=== PATIENT | female | born 1965 | race Hispanic/Latino ===

== ENCOUNTER 2019-10-15 08:33 | Emergency (ER) | payer OTHER, SELFPAY ==
--- OUTSIDE RECORDS SUMMARY | 2019-10-15 08:36 | XMS REPORT ---
:1965 [facility] Address [address] [place] [address] Dr. Harris [address] [place] [id number] Care Team Providers Name Role Phone Unavailable Unavailable Unavailable Problems This patient has no known problems. Allergies, Adverse Reactions, Alerts This patient has no known allergies or adverse reactions. Medications This patient has no known medications.
--- NOTE | 2019-10-15 09:21 | EKG ---
Test Date: 2019-10-15 Test Time: 08:37:37 Production Control Clerk: SARAH MEASUREMENT RESULTS: Intervals: Rate: 61 AL: 190 QRSD: 82 QT: 430 QTc: 432 [place]: P: 54 AL: 190 QRS: 66 T: 45 INTERPRETIVE STATEMENTS: Normal sinus rhythm Normal ECG Compared to ECG 09/17/2017 23:50:20 No significant changes Electronically Signed On 10-15-19 09:20:49 [employer] RECOVERY WORKER by Farhan Sandhu
[2019-10-15 09:27] LABS: Absolute Lymphocytes (CBC) 1.4 K/uL (0.7-4.9); Basophils % 0.8 % (0-1.3); Hematocrit 40.6 % (36.0-45.0); MPV 8.8 fL (7.6-11.3); RBC Red Blood Cell Count 4.46 M/uL (3.86-4.86)
[2019-10-15 09:28] LABS: Protime INR 1.04
[2019-10-15 09:46] LABS: ALT/SGPT 24 U/L (12-78); AST/SGOT 13 U/L (15-37); Albumin 3.9 g/dL (3.4-5.0); Alkaline Phosphatase 70 U/L (45-117); BUN Blood Urea Nitrogen 13 mg/dL (7-18); Bicarbonate 28 mmol/L (21-32); Bilirubin Direct 0.1 mg/dL (0-0.2); Bilirubin Total 0.5 mg/dL (0.2-1.0); Glucose Level 98 mg/dL (74-106); Magnesium 2.3 mg/dL (1.8-2.4); NT PRO-BNP 32 pg/mL (<125); Potassium 4.1 mmol/L (3.5-5.1); Protein, Total 7.8 g/dL (6.4-8.2); Sodium Level 142 mmol/L (136-145); Troponin (Emerg Dept Use Only) < 0.02 ng/mL (0.0-0.045)
--- NOTE | 2019-10-15 10:19 | RAD REPORT ---
EXAM DESCRIPTION: CT - Chest Angio - 10/15/2019 10:10 am CLINICAL HISTORY: CP radiateas from back to front;Chest pain COMPARISON: Chest Single View dated 10/15/2019 TECHNIQUE: Dynamically enhanced 3 mm thick images of the chest were obtained during administration o f approximately 150mL Isovue 370 IV contrast. Coronal and oblique MIP reconstruction images were gene rated and reviewed. Exam utilizes a protocol to evaluate the pulmonary arterial tree. All CT scans are performed using dose optimization technique as appropriate and may include automated exposure control or mA/KV adjustment according to patient size. FINDINGS: No pulmonary emboli are identified. The right and left main pulmonary arteries are enlarge d. Main pulmonary artery exiting the heart is normal size. The aorta as imaged shows no acute or suspicious finding. No pericardial thickening or effusion. No infiltrate or mass in the lung parenchyma. No pleural effusion or pleural thickening. No bronchial wall thickening or endobronchial lesion. No mediastinal or hilar suspicious masses. No chest wall masses or abnormal axillary lymphadenopathy. IMPRESSION: No pulmonary emboli identified. Pulmonary arteries are relatively large and correlation can be made with any pulmonary artery hyperte nsion clinical presentation. Lung pabon are clear. No significant or suspicious findings otherwise noted.
[2019-10-15] MEDS ORDERED: KETOROLAC 30 MG/ML INJ ONE (10:29)
--- NOTE | 2019-10-15 10:32 | RAD REPORT ---
EXAM DESCRIPTION: RAD - Chest Single View - 10/15/2019 9:52 am CLINICAL HISTORY: CHEST PAIN Chest pain. COMPARISON: Chest Single View dated 09/17/2017; CHEST SINGLE VIEW dated 10/15/2010; CHEST PA AND LAT 2 VIEW dated 12/13/2009; CHEST SINGLE VIEW dated 09/12/2008; Chest Angio dated 10/15/2019 FINDINGS: Portable technique limits examination quality. The lungs are grossly clear. The heart is normal in size. No displaced fractures. IMPRESSION: No acute intrathoracic process suspected.
--- NOTE | 2019-10-15 12:20 | ER ---
Nurse's Notes [facility] Name: Ellie Fajardo Age: 54 yrs Sex: Female : 1965 Arrival Date: 10/15/2019 Time: 08:36 Bed 19 Private MD: Diagnosis: Chest pain, unspecified;Upper back pain Presentation: 10/15 08:47 Presenting complaint: Patient states: upper back pain started yesterday, then started iw having midsternal chest pain this morning while at work, pain described as "needle pain" intermittent. Transition of care: patient was not received from another setting of care. Onset of symptoms was October 14, 2001. Risk Assessment: Do you want to hurt yourself or someone else? Patient reports no desire to harm self or others. Initial Sepsis Screen: Does the patient meet any 2 criteria? No. Patient's initial sepsis screen is negative. Does the patient have a suspected source of infection? No. Patient's initial sepsis screen is negative. Care prior to arrival: None. 08:47 Method Of Arrival: Ambulatory iw 08:47 Acuity: ARELI 3 iw Triage Assessment: 08:50 General: Appears in no apparent distress. comfortable, Behavior is calm, cooperative, bp appropriate for age. Pain: Complains of pain in back and abdomen. EENT: No deficits noted. Neuro: No deficits noted. Cardiovascular: Rhythm is sinus rhythm. Respiratory: No deficits noted. GI: No signs and/or symptoms were reported involving the gastrointestinal system. : No signs and/or symptoms were reported regarding the genitourinary system. Derm: No deficits noted. Musculoskeletal: No deficits noted. 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 - Coronavirus screen:: The patient has NOT traveled to [place] in the past 14 days. Proceed with normal triage process as indicated. - Social history:: Smoking status: Patient denies any tobacco usage or history of. - Ebola Screening: : Patient negative for fever greater than or equal to 101.5 degrees Fahrenheit, and additional compatible Ebola Virus Disease symptoms Patient denies exposure to infectious person Patient denies travel to an Ebola-affected area in the 21 days before illness onset No symptoms or risks identified at this time. Screenin:52 Abuse screen: Denies threats or abuse. Denies injuries from another. Nutritional hb screening: No deficits noted. Tuberculosis screening: No symptoms or risk factors identified. Fall Risk None identified. Assessment: 09:00 General: SEE TRIAGE NOTE. bp 09:52 Reassessment: ALL ORDERS COMPLETED, INITIAL RESULTS UNREMARKABLE. PT STILL C/O bp EPIGASTRIC PAIN. 10:40 Reassessment: REPEAT TROP DRAWN AND SENT. VS STABLE ON MONITOR. bp 11:47 Reassessment: ALL CURRENT VITALS STABLE, NO ACUTE S/S AT THIS TIME. bp 12:56 Reassessment: PT D/C HOME AMBULATORY, DX WITH NONSPECIFIC CHEST PAIN. bp Vital Signs: 08:50 BP 148 / 56; Pulse 57; Resp 16; Temp 97.7; Pulse Ox 99% on R/A; Weight 77.11 kg; Height iw 5 ft. 5 in. (165.10 cm); Pain 5/10; 09:51 BP 139 / 66; Pulse 57; Resp 27; Pulse Ox 100% ; bp 10:40 BP 117 / 64; Pulse 67; Resp 19; Pulse Ox 96% ; bp 11:46 BP 127 / 64; Pulse 61; Resp 13; Pulse Ox 98% ; bp 12:55 BP 117 / 61; Pulse 57; Resp 16; Temp 98; Pulse Ox 100% ; bp 08:50 Body Mass Index 28.29 (77.11 kg, 165.10 cm) iw ED Course: 08:36 Patient arrived in ED. as 08:46 Nuno Plata MD is Attending Physician. kdr 08:47 Frankie Michele, ANNA is Primary Nurse. bp 08:50 Triage completed. iw 08:50 Arm band placed on. iw 08:52 Patient has correct armband on for positive identification. Placed in gown. Bed in low hb position. Call light in reach. Side rails up X 1. secured entrance monitor on. Pulse ox on. NIBP on. 08:52 Patient maintains SpO2 saturation greater than 95% on room air. hb 09:03 Initial lab(s) drawn, by me, sent to lab. Inserted saline lock: 22 gauge in left kj1 antecubital area, using aseptic technique. Blood collected. 12:56 No provider procedures requiring assistance completed. IV discontinued, intact, bp bleeding controlled, No redness/swelling at site. Pressure dressing applied. Administered Medications: 10:30 Drug: TORadol - Ketorolac 15 mg Route: IVP; Site: left antecubital; bp Outcome: 12:18 Discharge ordered by . kdr 12:56 Discharged to home ambulatory. bp 12:56 Condition: stable 12:56 Discharge instructions given to patient, Instructed on discharge instructions, follow up and referral plans. Demonstrated understanding of instructions, follow-up care. 12:58 Patient left the ED. bp Signatures: Nuno Plata MD MD kdr Martinez, Amelia as Williams, Irene, ANNA RN iw Norma Simon RN RN Frankie Vazquez RN RN Caroline Calix [email or web address] Corrections: (The following items were deleted from the chart) 09:55 09:51 Pulse 57bpm; Resp 27bpm; Pulse Ox 100%; bp bp
--- NOTE | 2019-10-15 12:21 | EDPHYS ---
Physician Documentation [facility] Name: Ellie Fajardo Age: 54 yrs Sex: Female : 1965 Arrival Date: 10/15/2019 Time: 08:36 Bed 19 Private MD: ED Physician Nuno Plata HPI: 10/15 11:03 This 54 yrs old Female presents to ER via Ambulatory with complaints of Chest kdr Pain, Back Pain. 11:03 The patient or guardian reports chest pain that is located primarily in the substernal kdr area, The patient stated having pain yesterday in her upper mid back that now radiates into her lower substernal area.. Onset: suddenly, yesterday. The pain radiates to From mid back to lower sternum. Associated signs and symptoms: The patient has no apparent associated signs or symptoms. The chest pain is described as aching, sharp, stabbing. Duration: The patient or guardian reports multiple episodes, that are intermittent, that wax and wane, with no pattern. Severity of pain: At its worst the pain was mild in the emergency department the pain is unchanged. The patient has not experienced similar symptoms in the past. The patient has not recently seen a physician. 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 She does not have any prior history of the same and no other apparent precipitating issues or events. 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 - Coronavirus screen:: The patient has NOT traveled to [place] in the past 14 days. Proceed with normal triage process as indicated. - Social history:: Smoking status: Patient denies any tobacco usage or history of. - Ebola Screening: : Patient negative for fever greater than or equal to 101.5 degrees Fahrenheit, and additional compatible Ebola Virus Disease symptoms Patient denies exposure to infectious person Patient denies travel to an Ebola-affected area in the 21 days before illness onset No symptoms or risks identified at this time. ROS: 11:03 Constitutional: Negative for fever, chills, and weight loss, Eyes: Negative for injury, kdr pain, redness, and discharge, ENT: Negative for injury, pain, and discharge, Neck: Negative for injury, pain, and swelling, Respiratory: Negative for shortness of breath, cough, wheezing, and pleuritic chest pain, Abdomen/GI: Negative for abdominal pain, nausea, vomiting, diarrhea, and constipation, : Negative for injury, bleeding, discharge, and swelling, MS/Extremity: Negative for injury and deformity, Skin: Negative for injury, rash, and discoloration, Neuro: Negative for headache, weakness, numbness, tingling, and seizure activity. Psych: Negative for depression, anxiety, suicide ideation, homicidal ideation, and hallucinations, Allergy/Immunology: Negative for hives, rash, and allergies, Endocrine: Negative for neck swelling, polydipsia, polyuria, polyphagia, and marked weight changes, Hematologic/Lymphatic: Negative for swollen nodes, abnormal bleeding, and unusual bruising. 11:03 Cardiovascular: Positive for chest pain, of the xyphoid area, Negative for edema, orthopnea, palpitations, paroxysmal nocturnal dyspnea, acute changes. Exam: 11:03 Constitutional: This is a well developed, well nourished patient who is awake, alert, kdr and in no acute distress. Head/Face: Normocephalic, atraumatic. Eyes: Pupils equal round and reactive to light, extra-ocular motions intact. Lids and lashes normal. Conjunctiva and sclera are non-icteric and not injected. Cornea within normal limits. Periorbital areas with no swelling, redness, or edema. Neck: Trachea midline, no thyromegaly or masses palpated, and no cervical lymphadenopathy. Supple, full range of motion without nuchal rigidity, or vertebral point tenderness. No Meningismus. Chest/axilla: Normal chest wall appearance and motion. Nontender with no deformity. No lesions are appreciated. Cardiovascular: Regular rate and rhythm with a normal S1 and S2. No gallops, murmurs, or rubs. Normal PMI, no JVD. No pulse deficits. Respiratory: Lungs have equal breath sounds bilaterally, clear to auscultation and percussion. No rales, rhonchi or wheezes noted. No increased work of breathing, no retractions or nasal flaring. Abdomen/GI: Soft, non-tender, with normal bowel sounds. No distension or tympany. No guarding or rebound. No evidence of tenderness throughout. Back: No spinal tenderness. No costovertebral tenderness. Full range of motion. Skin: Warm, dry with normal turgor. Normal color with no rashes, no lesions, and no evidence of cellulitis. MS/ Extremity: Pulses equal, no cyanosis. Neurovascular intact. Full, normal range of motion. Neuro: Awake and alert, GCS 15, oriented to person, place, time, and situation. Cranial nerves II-XII grossly intact. Motor strength 5/5 in all extremities. Sensory grossly intact. Cerebellar exam normal. Normal gait. Psych: Awake, alert, with orientation to person, place and time. Behavior, mood, and affect are within normal limits. Vital Signs: 08:50 BP 148 / 56; Pulse 57; Resp 16; Temp 97.7; Pulse Ox 99% on R/A; Weight 77.11 kg; Height iw 5 ft. 5 in. (165.10 cm); Pain 5/10; 09:51 BP 139 / 66; Pulse 57; Resp 27; Pulse Ox 100% ; bp 10:40 BP 117 / 64; Pulse 67; Resp 19; Pulse Ox 96% ; bp 11:46 BP 127 / 64; Pulse 61; Resp 13; Pulse Ox 98% ; bp 12:55 BP 117 / 61; Pulse 57; Resp 16; Temp 98; Pulse Ox 100% ; bp 08:50 Body Mass Index 28.29 (77.11 kg, 165.10 cm) iw MDM: 11:03 HEART Score: History: Slightly Suspicious (0), ECG: Normal (0), Age: > 45 and < 65 kdr years (1), Risk Factors: 1 or 2 risk factors (1), Troponin: < or = 1 x Normal Limit (0), Total Score = 2. The patient's pulmonary embolism risk score was calculated as follows: No Risks (0 Pts) Total Score: 0-2 points. This patient was found to be at low risk for a pulmonary embolism by using the Well's assessment criteria. CHARLIE Risk Score: TOTAL SCORE = 0. Data reviewed: vital signs, nurses notes. 11:48 ED course: No change in Trop values and no significant changes between two EKG. Will kdr discharge for follow-up.. 12:18 Patient medically screened. kdr 10/15 09:06 Order name: Basic Metabolic Panel hb 10/15 09:06 Order name: CBC with Diff hb 10/15 09:06 Order name: LFT's hb 10/15 09:06 Order name: Magnesium hb 10/15 09:06 Order name: NT PRO-BNP hb 10/15 09:06 Order name: PT-INR hb 10/15 09:06 Order name: Troponin (emerg Dept Use Only) hb 10/15 09:34 Order name: CBC with Automated Diff; Complete Time: 10:22 EDMS 10/15 09:34 Order name: Protime (+INR); Complete Time: 10:22 EDMS 10/15 09:47 Order name: Basic Metabolic Panel; Complete Time: 10:22 EDMS 10/15 09:47 Order name: Liver (Hepatic) Function; Complete Time: 10:22 EDMS 10/15 09:47 Order name: Troponin (Emerg Dept Use Only); Complete Time: 10:22 EDMS 10/15 09:47 Order name: NT PRO-BNP; Complete Time: 10:22 EDMS 10/15 09:47 Order name: Magnesium; Complete Time: 10:22 EDMS 10/15 09:06 Order name: XRAY Chest (1 view) hb 10/15 09:06 Order name: EKG; Complete Time: 09:09 hb 10/15 09:06 Order name: Cardiac monitoring; Complete Time: 09:13 hb 10/15 09:06 Order name: EKG - Nurse/Tech; Complete Time: 09:13 hb 10/15 09:06 Order name: IV Saline Lock; Complete Time: 09:13 hb 10/15 09:06 Order name: Labs collected and sent; Complete Time: 09:13 hb 10/15 09:06 Order name: O2 Per Protocol; Complete Time: 09:13 hb 10/15 09:06 Order name: O2 Sat Monitoring; Complete Time: 09:13 hb 10/15 09:26 Order name: CT Chest Angio kdr 10/15 10:34 Order name: Troponin (emerg Dept Use Only) kdr 10/15 10:40 Order name: CT; Complete Time: 11:02 EDMS 10/15 11:08 Order name: RAD; Complete Time: 11:44 EDMS 10/15 11:12 Order name: Troponin (Emerg Dept Use Only); Complete Time: 11:44 EDMS Administered Medications: 10:30 Drug: TORadol - Ketorolac 15 mg Route: IVP; Site: left antecubital; bp Disposition: 10/15/19 12:18 Discharged to Home. Impression: Chest pain, unspecified, Upper back pain. - Condition is Stable. - Discharge Instructions: Nonspecific Chest Pain, [id number], Back Pain, Adult, [id number]. - Medication Reconciliation Form, Thank You Letter form. - Follow up: Private Physician; When: 2 - 3 days; Reason: If symptoms return, Further diagnostic work-up, Recheck today's complaints, Continuance of care, Re-evaluation by your physician. - Problem is new. - Symptoms have improved. Signatures: Dispatcher [employer] EDMS Nuno Plata MD MD kdr Naomi Fang RN RN iw Norma Simon RN RN Frankie Michele RN RN bp Corrections: (The following items were deleted from the chart) 12:58 12:18 10/15/2019 12:18 Discharged to Home. Impression: Chest pain, unspecified; Upper bp back pain. Condition is Stable. Forms are Medication Reconciliation Form, Thank You Letter, Antibiotic Education, Prescription Opioid Use. Follow up: Private Physician; When: 2 - 3 days; Reason: If symptoms return, Further diagnostic work-up, Recheck today's complaints, Continuance of care, Re-evaluation by your physician. Problem is new. Symptoms have improved. kdr
--- NOTE | 2019-10-15 17:49 | EKG ---
Test Date: 2019-10-15 Test Time: 10:24:32 Tire Recapper: SARAH MEASUREMENT RESULTS: Intervals: Rate: 53 PA: 204 QRSD: 72 QT: 442 QTc: 414 [place]: P: 39 PA: 204 QRS: 130 T: 39 INTERPRETIVE STATEMENTS: Sinus bradycardia Right axis deviation Low voltage QRS cannot rule out Septal infarct, age undetermined Abnormal ECG Compared to ECG 10/15/2019 08:37:37 Right-axis deviation now present Low QRS voltage now present possible Myocardial infarct finding now present Sinus rhythm no longer present Electronically Signed On 10-15-19 17:48:33 PARAPLANNER by Farhan Sandhu
[2019-10-16 08:53] VITALS: BP 117/61; TEMP 98; O2SAT 100
== END 2019-10-15 12:58 | disposition home or self-care (01) ==
LOC: ER 08:33
DX: M54.9 Dorsalgia, unspecified (principal); I10 Essential (primary) hypertension
CPT/HCPCS: 93005 ×2; 85025; 80048; 36415; 83735; 85610; 80076; 84484 ×2; 83880; 71275; 71045; 96374; 99285; Q9967

== ENCOUNTER 2020-03-16 19:39 | Observation (INO) | payer OTHER ==
[2020-03-16 20:07] LABS: Urine Blood NEGATIVE (NEG); Urine Glucose NEGATIVE (NEG); Urine Protein NEGATIVE (NEG); Urine pH 5.5 (5.0-7.0)
[2020-03-16] MEDS ORDERED: PIPER/TAZO/NS 3.375gm 3.375 GM/100 ML BAG ONE ×3 (20:20→23:38)
[2020-03-16] MEDS ORDERED: ONDANSETRON 4 MG/2 ML VIAL ONE (20:20)
[2020-03-16] MEDS ORDERED: MORPHINE 4 MG/ML SYR ONE (20:20)
[2020-03-16] MEDS ORDERED: NA CHLORIDE 0.9% 1,000 ML ONE (20:20)
[2020-03-16 20:32] LABS: Bilirubin Direct 0.1 mg/dL (0-0.2); Bilirubin Total 0.7 mg/dL (0.2-1.0); Potassium 3.6 mmol/L (3.5-5.1); Protein, Total 8.8 g/dL (6.4-8.2)
[2020-03-16 20:35] LABS: Absolute Lymphocytes (CBC) 1.9 K/uL (0.7-4.9); Basophils % 0.5 % (0-1.3); Hematocrit 43.2 % (36.0-45.0); Lymphocytes % 16.9 % (15.3-44.8); MPV 8.6 fL (7.6-11.3); RBC Red Blood Cell Count 4.74 M/uL (3.86-4.86)
--- NOTE | 2020-03-16 20:39 | RAD REPORT ---
EXAM DESCRIPTION: CT - Abdomen Pelvis W Contrast - 03/16/2020 8:21 pm CLINICAL HISTORY: ABD PAIN COMPARISON: CT ABD PELVIS W CONTRAST dated 12/01/2014 TECHNIQUE: Biphasic, helical CT imaging of the abdomen and pelvis was performed following 100 ml non -ionic IV contrast. No oral contrast. All CT scans are performed using dose optimization technique as appropriate and may include automated exposure control or mA/KV adjustment according to patient size. FINDINGS: No suspicious lung base findings. A 5 mm pulmonary nodule lateral left base has not change d since 2015. The liver, spleen, and pancreas show no suspicious findings. Gallbladder is absent. Dilatation of the biliary tree matches the prior study. Symmetric renal function is seen with no hydronephrosis or suspicious renal mass. No pyelonephritis o r acute parenchymal process. No bladder abnormalities. No adrenal abnormalities. Uterus and ovaries s how no suspicious findings. No gastric dilatation or gastric wall thickening. No small bowel abnormality. Terminal ileum is hiral l in appearance. No acute colon finding identified. Patient has diverticulosis without diverticulitis . The appendix is abnormal. Proximal appendix is up to 11 mm in diameter much larger than seen previous ly. There is a trace amount of stranding in the adjacent fat. No appendicolith. No free air or pneumatosis. No other area of inflammatory stranding. No hernia, mass or bulky lymp hadenopathy. No suspicious bony findings. IMPRESSION: Appendix is abnormal in appearance compared to the 2015 study. Early acute appendicitis is the most likely etiology. No free air, abscess or other complicating factor. Appendix is in classic right lower quadrant locati on.
--- NOTE | 2020-03-16 20:40 | RAD REPORT ---
EXAM DESCRIPTION: RAD - Chest Single View - 03/16/2020 8:31 pm CLINICAL HISTORY: ABDOMINAL DISTENTION, abdominal pain COMPARISON: October 2019 TECHNIQUE: AP portable chest image was obtained 03/16/2020 8:31 pm . FINDINGS: Lung volumes are low. No focal mass or consolidation. Low lung volumes, portable technique and body habitus accentuate left base markings. Heart and vasculature are normal. No measurable pleu ral effusion and no pneumothorax. No acute bony abnormality seen. No acute aortic findings suspected. IMPRESSION: No acute cardiopulmonary process.
--- NOTE | 2020-03-16 20:55 | ER ---
Nurse's Notes [facility] Name: Ellie Fajardo Age: 55 yrs Sex: Female : 1965 Arrival Date: 03/16/2020 Time: 19:44 Bed 6 Private MD: Frankie Dunn Diagnosis: Abdominal tenderness;Acute appendicitis Presentation: 03/16 19:54 Chief complaint: Patient states: RLQ pain started early today. Reports Nausea and ca1 dizziness. Denies urinary symptoms. Coronavirus screen: Proceed with normal triage. Patient denies a cough. Patient denies shortness of breath or difficulty breathing. Patient denies measured and/or subjective temperature greater than 100.4F prior to today's visit. Patient denies travel on a cruise ship or to a country the [facility] currently lists as an affected area. Patient denies contact with known and/or suspected case of COVID-19. Ebola Screen: Patient negative for fever greater than or equal to 101.5 degrees Fahrenheit, and additional compatible Ebola Virus Disease symptoms Patient denies exposure to infectious person. Patient denies travel to an Ebola-affected area in the 21 days before illness onset. No symptoms or risks identified at this time. Initial Sepsis Screen: Does the patient meet any 2 criteria? No. Patient's initial sepsis screen is negative. Does the patient have a suspected source of infection? No. Patient's initial sepsis screen is negative. Risk Assessment: Do you want to hurt yourself or someone else? Patient reports no desire to harm self or others. Onset of symptoms was March 16, 2020. 19:54 Method Of Arrival: Ambulatory ca1 19:54 Acuity: ARELI 3 ca1 Historical: - Allergies: 19:56 No Known Allergies; ca1 - Home Meds: 19:56 amlodipine 5 mg tab once daily for Hypertension [Active]; ca1 - PMHx: 19:56 Hypertension; ca1 - PSHx: 19:56 Cholecystectomy; ca1 - Immunization history:: Adult Immunizations up to date. - Social history:: Smoking status: Patient denies any tobacco usage or history of. - Family history:: not pertinent. Screenin:56 Abuse screen: Denies threats or abuse. Denies injuries from another. Nutritional rv screening: No deficits noted. Tuberculosis screening: No symptoms or risk factors identified. Fall Risk None identified. Assessment: 19:55 General: Appears comfortable, Behavior is calm, cooperative. Pain: Complains of pain in rv right lower quadrant Pain currently is 7 out of 10 on a pain scale. Quality of pain is described as dull. Neuro: Level of Consciousness is awake, alert, obeys commands, Oriented to person, place, time, situation. Cardiovascular: Patient's skin is warm and dry. Respiratory: Airway is patent. GI: Bowel sounds present X 4 quads. Abd is soft Abdomen is tender to palpation in right lower quadrant Reports nausea. 21:57 Reassessment: nurse will call back to receive the report. mg2 Vital Signs: 19:54 BP 135 / 71; Pulse 96; Resp 15 S; Pulse Ox 99% on R/A; Weight 77.11 kg (R); Height 5 ca1 ft. 5 in. (165.10 cm) (R); 19:59 Temp 99.6(A); mg2 21:00 BP 135 / 67; Pulse 81; Resp 17; Pulse Ox 99% on R/A; rv 22:00 BP 127 / 58; Pulse 79; Resp 17; Temp 99; Pulse Ox 98% on R/A; rv 19:54 Body Mass Index 28.29 (77.11 kg, 165.10 cm) ca1 ED Course: 19:44 Patient arrived in ED. es 19:44 Frankie Dunn MD is Private Physician. es 19:48 Ivan Bennett, WARREN is Primary Nurse. rv 19:54 Kali Crocker MD is Attending Physician. mitch 19:55 Triage completed. ca1 19:56 Arm band placed on right wrist. ca1 19:57 Patient has correct armband on for positive identification. Placed in gown. Bed in low rv position. Call light in reach. Side rails up X 1. Pulse ox on. NIBP on. 19:59 Initial lab(s) drawn, by ED staff, sent to lab. Inserted saline lock: 20 gauge in right rv antecubital area, using aseptic technique. Blood collected. 20:06 Lipase Sent. ds4 20:06 Hepatic Function Sent. ds4 20:07 CBC with Diff Sent. ds4 20:07 Basic Metabolic Panel Sent. ds4 20:21 CT Abd/Pelvis - IV Contrast Only In Process Unspecified. EDMS 20:30 Chest Single View XRAY In Process Unspecified. EDMS 20:51 Antonio Camp MD is Hospitalizing Provider. [facility] 22:04 No provider procedures requiring assistance completed. Patient admitted, IV remains in mg2 place. Administered Medications: 20:14 Drug: morphine 4 mg {Note: RASS 0.} Route: IVP; Site: right antecubital; rv 21:55 Follow up: Response: No adverse reaction; Marked relief of symptoms mg2 20:14 Drug: Zofran (Ondansetron) 4 mg Route: IVP; Site: right antecubital; rv 21:55 Follow up: Response: No adverse reaction mg2 20:15 Drug: NS 0.9% 1000 ml Route: IV; Rate: 1 bolus; Site: right antecubital; rv 21:55 Follow up: Response: No adverse reaction; IV Status: Completed infusion; IV Intake: mg2 1000ml 21:15 Drug: Zosyn 3.375 grams Route: IVPB; Infused Over: 60 mins; Site: right forearm; mg2 21:55 Follow up: Response: No adverse reaction; IV Status: Completed infusion mg2 22:12 Not Given (NPO): Tylenol 650 mg PO once rv Intake: 21:55 IV: 1000ml; Total: 1000ml. mg2 Outcome: 20:55 Decision to Hospitalize by Provider. [facility] 22:04 Admitted to Med/surg accompanied by tech, via wheelchair, room 212, with chart, Report mg2 called to warren wilder 22:04 Condition: stable 22:04 Instructed on the need for admit, Demonstrated understanding of instructions. 22:16 Patient left the ED. ar5 Signatures: Dispatcher [employer] [facility] Kali Crocker MD MD cha Salyer, Edna es Swanson, Donovan ds4 Kenyon Vance RN RN mg2 Ivan Bennett RN RN rv Robles, Autumn ar5 Brittany Chris RN RN ca1 Corrections: (The following items were deleted from the chart) 19:56 19:54 77.11 kg Reported; Height 5 ft. 5 in. Reported; BMI: 28.2; ca1 ca1
--- NOTE | 2020-03-16 20:55 | EDPHYS ---
Physician Documentation [facility] Name: Ellie Fajardo Age: 55 yrs Sex: Female : 1965 Arrival Date: 03/16/2020 Time: 19:44 Bed 6 Private MD: Frankie Dunn ED Physician Kali Crocker HPI: 03/16 20:13 This 55 yrs old Female presents to ER via Ambulatory with complaints of mitch Abdominal Pain, Flank Pain, Dizziness. 20:13 This 55 yrs old Female presents to ER via Ambulatory with complaints of mitch Abdominal Pain, Flank Pain, Dizziness. 20:13 The patient presents with abdominal pain in the lower abdomen, right lower quadrant. mitch Onset: The symptoms/episode began/occurred just prior to arrival. The symptoms do not radiate. Associated signs and symptoms: none. The symptoms are described as crampy. Modifying factors: The symptoms are alleviated by nothing, the symptoms are aggravated by. Severity of pain: At its worst the pain was moderate in the emergency department the pain is unchanged. The patient has not experienced similar symptoms in the past. Historical: - Allergies: 19:56 No Known Allergies; ca1 - Home Meds: 19:56 amlodipine 5 mg tab once daily for Hypertension [Active]; ca1 - PMHx: 19:56 Hypertension; ca1 - PSHx: 19:56 Cholecystectomy; ca1 - Immunization history:: Adult Immunizations up to date. - Social history:: Smoking status: Patient denies any tobacco usage or history of. - Family history:: not pertinent. ROS: 20:13 Constitutional: Negative for fever, chills, and weight loss, Eyes: Negative for injury, mitch pain, redness, and discharge, ENT: Negative for injury, pain, and discharge, Neck: Negative for injury, pain, and swelling, Cardiovascular: Negative for chest pain, palpitations, and edema, Respiratory: Negative for shortness of breath, cough, wheezing, and pleuritic chest pain, Back: Negative for injury and pain, : Negative for injury, bleeding, discharge, and swelling, MS/Extremity: Negative for injury and deformity, Skin: Negative for injury, rash, and discoloration, Neuro: Negative for headache, weakness, numbness, tingling, and seizure, Psych: Negative for depression, anxiety, suicide ideation, homicidal ideation, and hallucinations, Allergy/Immunology: Negative for hives, rash, and allergies, Endocrine: Negative for neck swelling, polydipsia, polyuria, polyphagia, and marked weight changes, Hematologic/Lymphatic: Negative for swollen nodes, abnormal bleeding, and unusual bruising. 20:13 Abdomen/GI: Positive for abdominal pain, of the right lower quadrant. Exam: 20:13 Constitutional: This is a well developed, well nourished patient who is awake, alert, mitch and in no acute distress. Head/Face: Normocephalic, atraumatic. Eyes: Pupils equal round and reactive to light, extra-ocular motions intact. Lids and lashes normal. Conjunctiva and sclera are non-icteric and not injected. Cornea within normal limits. Periorbital areas with no swelling, redness, or edema. ENT: Nares patent. No nasal discharge, no septal abnormalities noted. Tympanic membranes are normal and external auditory canals are clear. Oropharynx with no redness, swelling, or masses, exudates, or evidence of obstruction, uvula midline. Mucous membranes moist. Neck: Trachea midline, no thyromegaly or masses palpated, and no cervical lymphadenopathy. Supple, full range of motion without nuchal rigidity, or vertebral point tenderness. No Meningismus. Chest/axilla: Normal chest wall appearance and motion. Nontender with no deformity. No lesions are appreciated. Cardiovascular: Regular rate and rhythm with a normal S1 and S2. No gallops, murmurs, or rubs. Normal PMI, no JVD. No pulse deficits. Respiratory: Lungs have equal breath sounds bilaterally, clear to auscultation and percussion. No rales, rhonchi or wheezes noted. No increased work of breathing, no retractions or nasal flaring. Back: No spinal tenderness. No costovertebral tenderness. Full range of motion. Female : Normal external genitalia. Skin: Warm, dry with normal turgor. Normal color with no rashes, no lesions, and no evidence of cellulitis. MS/ Extremity: Pulses equal, no cyanosis. Neurovascular intact. Full, normal range of motion. Neuro: Awake and alert, GCS 15, oriented to person, place, time, and situation. Cranial nerves II-XII grossly intact. Motor strength 5/5 in all extremities. Sensory grossly intact. Cerebellar exam normal. Normal gait. Psych: Awake, alert, with orientation to person, place and time. Behavior, mood, and affect are within normal limits. 20:13 Abdomen/GI: Inspection: abdomen appears normal, Bowel sounds: normal, Palpation: abdomen is soft and non-tender, in the right lower quadrant, Liver: no appreciated palpable abnormalities, Hernia: not appreciated. 20:20 ECG was reviewed by the Attending Physician. [facility] Vital Signs: 19:54 BP 135 / 71; Pulse 96; Resp 15 S; Pulse Ox 99% on R/A; Weight 77.11 kg (R); Height 5 ca1 ft. 5 in. (165.10 cm) (R); 19:59 Temp 99.6(A); mg2 21:00 BP 135 / 67; Pulse 81; Resp 17; Pulse Ox 99% on R/A; rv 22:00 BP 127 / 58; Pulse 79; Resp 17; Temp 99; Pulse Ox 98% on R/A; rv 19:54 Body Mass Index 28.29 (77.11 kg, 165.10 cm) ca1 MDM: 19:54 Patient medically screened. [facility] 20:15 Data reviewed: vital signs, nurses notes, lab test result(s), radiologic studies, CT mitch scan. 20:16 Differential diagnosis: cholecystitis, Cholelithiasis, gastritis, gastroesophageal mitch reflux disease, non-specific abd pain, pancreatitis. Data interpreted: supervisor last model department: rate is 96 beats/min, rhythm is regular, Pulse oximetry:. Test interpretation: by ED physician or midlevel provider: ECG, plain radiologic studies. Counseling: I had a detailed discussion with the patient and/or guardian regarding: the historical points, exam findings, and any diagnostic results supporting the discharge/admit diagnosis, lab results, radiology results, the need for further work-up and treatment in the hospital. Medical screen evaluation completed. EMTALA emergency medical condition absent. Medication response: Zofran markedly relieved the patient's nausea. 03/16 19:57 Order name: Basic Metabolic Panel; Complete Time: 20:45 ca1 03/16 19:57 Order name: CBC with Diff; Complete Time: 20:45 ca1 03/16 19:57 Order name: Hepatic Function; Complete Time: 20:45 ca1 03/16 19:57 Order name: Lipase; Complete Time: 20:45 ca1 03/16 19:59 Order name: Urine Dipstick--Ancillary (enter results); Complete Time: 20:08 ar5 03/16 20:10 Order name: Urine Culture [facility] 03/16 20:08 Order name: CT Abd/Pelvis - IV Contrast Only; Complete Time: 20:45 mitch 03/16 20:08 Order name: Chest Single View XRAY; Complete Time: 20:45 mitch 03/16 20:11 Order name: Glucose, Ancillary Testing; Complete Time: 20:45 EDMS 03/16 19:57 Order name: Urine Dipstick-Ancillary (obtain specimen); Complete Time: 19:57 ca1 03/16 19:57 Order name: IV Saline Lock; Complete Time: 19:58 ca1 03/16 19:57 Order name: Labs collected and sent; Complete Time: 19:58 ca1 03/16 20:08 Order name: EKG; Complete Time: 20:09 mitch 03/16 20:08 Order name: EKG - Nurse/Tech; Complete Time: 20:14 mitch EC:20 Rate is 96 beats/min. Rhythm is regular. QRS [place] is Normal. [place] interval is normal. QRS mitch interval is normal. QT interval is normal. No Q waves. T waves are Normal. No ST changes noted. Clinical impression: NSR w/ Non-specific ST/T Changes and No evidence of ischemia. Interpreted by me. Reviewed by me. Administered Medications: 20:14 Drug: morphine 4 mg {Note: RASS 0.} Route: IVP; Site: right antecubital; rv 21:55 Follow up: Response: No adverse reaction; Marked relief of symptoms mg2 20:14 Drug: Zofran (Ondansetron) 4 mg Route: IVP; Site: right antecubital; rv 21:55 Follow up: Response: No adverse reaction mg2 20:15 Drug: NS 0.9% 1000 ml Route: IV; Rate: 1 bolus; Site: right antecubital; rv 21:55 Follow up: Response: No adverse reaction; IV Status: Completed infusion; IV Intake: mg2 1000ml 21:15 Drug: Zosyn 3.375 grams Route: IVPB; Infused Over: 60 mins; Site: right forearm; mg2 21:55 Follow up: Response: No adverse reaction; IV Status: Completed infusion mg2 22:12 Not Given (NPO): Tylenol 650 mg PO once rv Disposition: 03/16/20 20:55 Hospitalization ordered by Antonio Camp for Observation. Preliminary diagnosis are Abdominal tenderness, Acute appendicitis. - Bed requested for Telemetry/MedSurg (observation). - Status is Observation. ar5 - Condition is Stable. - Problem is new. - Symptoms have improved. Signatures: Dispatcher [employer] EDMS Kali Crocker MD MD cha Garcia, Cindy, ANNA RN cg Kenyon Vance RN RN [facility] Ivan Bennett RN RN [place] ar5 Brittany Chris RN RN ca1 Corrections: (The following items were deleted from the chart) 21:52 20:55 Hospitalization Ordered by Antonio Camp MD for Observation. Preliminary cg diagnosis is Abdominal tenderness; Acute appendicitis. Bed requested for Telemetry/MedSurg (observation). Status is Observation. Condition is Stable. Problem is new. Symptoms have improved. [facility] 22:16 21:52 03/16/2020 20:55 Hospitalization Ordered by Antonio Camp MD for Observation. ar5 Preliminary diagnosis is Abdominal tenderness; Acute appendicitis. Bed requested for Telemetry/MedSurg (observation). Status is Observation. Condition is Stable. Problem is new. Symptoms have improved. cg
--- OUTSIDE RECORDS SUMMARY | 2020-03-16 21:08 | XMS REPORT | Continuity of Care Document ---
:1965 Author Organization [facility] t Address [address] [place] [address] Dr. Harris [address] [place] [id number] Care Team Providers Name Role Phone Unavailable Unavailable Unavailable Problems This patient has no known problems. Allergies, Adverse Reactions, Alerts This patient has no known allergies or adverse reactions. Medications This patient has no known medications. Procedures This patient has no known procedures. Results This patient has no known results.
[2020-03-16] MEDS ORDERED: ONDANSETRON 4 MG/2 ML VIAL IV PRN (22:12)
[2020-03-16] MEDS ORDERED: MORPHINE 4 MG/ML SYR IV PRN (22:12)
[2020-03-16] MEDS ORDERED: ACETAMINOPHEN 325 MG TABLET PO PRN (22:24)
[2020-03-16] MEDS: D5 0.45 NS 1,000 ML IV SCH (22:43)
[2020-03-16] MEDS: FAMOTIDINE 20 MG/2 ML VIAL IV SCH (22:53)
[2020-03-17 00:04] VITALS: BMI 29.0
[2020-03-17] MEDS: PIPER/TAZO/NS 3.375gm 3.375 GM/100 ML BAG IVPB SCH ×4 (00:29→18:00)
[2020-03-17] MEDS: D5 0.45 NS 1,000 ML IV SCH ×3 (06:12→21:26)
[2020-03-17 06:47] LABS: Absolute Lymphocytes (CBC) 1.4 K/uL (0.7-4.9); Basophils % 0.6 % (0-1.3); Hematocrit 35.8 % (36.0-45.0); Lymphocytes % 22.3 % (15.3-44.8); MPV 8.3 fL (7.6-11.3); RBC Red Blood Cell Count 3.92 M/uL (3.86-4.86)
[2020-03-17 06:56] LABS: ALT/SGPT 19 U/L (12-78); AST/SGOT 12 U/L (15-37); Albumin 3.3 g/dL (3.4-5.0); Alkaline Phosphatase 62 U/L (45-117); BUN Blood Urea Nitrogen 11 mg/dL (7-18); Bicarbonate 26 mmol/L (21-32); Bilirubin Direct 0.2 mg/dL (0-0.2); Bilirubin Total 0.8 mg/dL (0.2-1.0); Glucose Level 106 mg/dL (74-106); Lipase 50 U/L (73-393); Potassium 3.8 mmol/L (3.5-5.1); Protein, Total 7.1 g/dL (6.4-8.2); Sodium Level 141 mmol/L (136-145)
--- NOTE | 2020-03-17 07:24 | EKG ---
Test Date: 2020-03-16 Test Time: 20:17:30 Certified Lactation Educator: MEASUREMENT RESULTS: Intervals: Rate: 88 NM: 188 QRSD: 68 QT: 350 QTc: 423 [place]: P: 50 NM: 188 QRS: 112 T: 61 INTERPRETIVE STATEMENTS: Normal sinus rhythm Right axis deviation Low voltage QRS Septal infarct, age undetermined Abnormal ECG Compared to ECG 10/15/2019 10:24:32 Sinus bradycardia no longer present Myocardial infarct finding still present Electronically Signed On 03-17-20 07:22:55 CDT by Aristides Hendrix
[2020-03-17] MEDS: FAMOTIDINE 20 MG/2 ML VIAL IV SCH ×2 (08:27→21:19)
[2020-03-17] MEDS ORDERED: Ringers Lactate 1,000 ML IV ONE (08:27)
[2020-03-17] MEDS ORDERED: BUPIVACAINE 0.5% PF 10 ML VIAL ONE (09:29)
[2020-03-17] MEDS ORDERED: FENTANYL CITR 100 MCG/2 ML ONE (09:57)
[2020-03-17] MEDS ORDERED: propofoL 200 MG/20 ML VIAL IV ONE (09:57)
[2020-03-17] MEDS ORDERED: MIDAZOLAM HCL 2 MG/2 ML INJ ONE (09:57)
[2020-03-17] MEDS ORDERED: LIDOCAINE 2% MPF 5 ML VIAL ONE (10:00)
[2020-03-17] MEDS ORDERED: dexAMETHasone 10 MG/ML VIAL ONE (10:00)
[2020-03-17] MEDS ORDERED: ONDANSETRON 4 MG/2 ML VIAL ONE ×2 (10:00→13:21)
[2020-03-17] MEDS ORDERED: ROCURONIUM 50 MG/5 ML VIAL IV ONE (10:00)
--- NOTE | 2020-03-17 10:31 | P.HP ---
Date of Service: 03/17/20 PC: This 55-year-old female presents emergency room with severe right lower quadrant abdominal pain for diagnosis and treatment. HPC: Patient had not feeling well for the last 2-3 days. Yesterday pain began to intensify, localized to the right lower quadrant. Got to the point where she is having trouble walking sutured came to the ER for evaluation. PMH: Hypertension PSHx: NAD SOC: No known allergies, on blood pressure medication SYS REVIEW: No cough, wheeze, shortness of breath. No temperatures or fevers. No urinary complaints O/E awake alert comfortable at the moment HEENT: Within normal limits Chest: Chest movement equal bilaterally ABD: Tenderness with guarding and rebound at the right lower quadrant LOCO: Intact DATA: CT scan confirms clinical diagnosis of acute appendicitis IMPRESSION: Acute abdomen with appendicitis PLAN: I will take her to the operating room for laparoscopic possible open appendectomy. The risks of this procedure have been discussed. The possibility of bleeding, infection, injury to to bowel and blood vessels was described. Abscess formation wound infection was described. She understands and wants to proceed.
[2020-03-17] MEDS ORDERED: GLYCOPYRROLATE 0.2 MG/ML SYR ONE (11:20)
[2020-03-17] MEDS ORDERED: KETOROLAC 30 MG/ML INJ ONE (12:01)
--- NOTE | 2020-03-17 12:06 | P.OP ---
Preoperative diagnosis: Acute abdomen Postoperative diagnosis: Acute appendicitis Primary procedure: Laparoscopic appendectomy Anesthesia: General Estimated blood loss: Less than 10 cc Specimen: 1 appendix Findings: Acute appendicitis Operative Technique: The patient was brought to the operating room, placed supine on the table. After the induction of adequate general endotracheal anesthesia, the area of the abdomen was prepped with a DuraPrep solution, and she was draped in the usual aseptic manner. A subumbilical incision was made. This was brought down through the skin and subcutaneous tissue. The Visiport was was used to enter the peritoneal cavity and create pneumoperitoneum to approximately 12 mm of mercury. Under direct vision a 5 mm trocar was placed in the lower midline and another 5 mm in the right upper quadrant. The patient was then positioned in Trendelenburg and rolled to the left side. We were able to visualize right lower quadrant. We could see an inflamed appendix against the right sidewall of the abdomen. There was noted be inflamed and adherent to the surrounding fat. The appendix was then gently dissected from the surrounding structures. The junction of the appendix with the with the cecum was identified. An opening was made in the mesentery of the appendix. The 10 mm trocar was now converted to a 12 with the camera moved to the right upper port with a 5 mm camera. The linear Stapler was introduced into the peritoneal cavity. It was placed across the base of the appendix and fired. A vascular reload was then placed into the Stapler. The mesentery of the appendix was then taken down. The appendix having been was placed into an Endo-Catch, and brought out through the umbilical port site. Attention was turned back towards the right lower quadrant. The area was gently irrigated with the saline solution. The effluent was aspirated. 0.25% Marcaine was aerosolize into the right lower quadrant. Attention was turned towards the umbilical trocar. Using the endo-close, absorbable sutures were placed to close the defect. The patient was now returned to the neutral position on the OR table. The pneumoperitoneum was collapsed, the umbilical sutures tied, and eleanor applied to the skin. At the end of the procedure the patient was in stable condition and sent to the recovery room. Needle sponge and instrument count were correct. 1 specimen was sent for histopathology. Sterile dressings had been applied. Complications: None Transferred to: Recovery Room Condition: Good
[2020-03-17] MEDS ORDERED: MORPHINE 4 MG/ML SYR IV PRN ×2 (12:23→19:50)
[2020-03-17] MEDS: HYDROMORPHONE HCL 1 MG/ML INJ ONE ×2 (12:50→13:00)
[2020-03-17 23:14] VITALS: O2SAT 96
[2020-03-18] MEDS: PIPER/TAZO/NS 3.375gm 3.375 GM/100 ML BAG IVPB SCH ×2 (00:15→10:17)
[2020-03-18] MEDS: D5 0.45 NS 1,000 ML IV SCH ×2 (00:17→06:12)
[2020-03-18] MEDS: HYDROCODONE/APAP 7.5/325 MG TAB PO PRN ×3 (00:39→15:24)
[2020-03-18] MEDS: FAMOTIDINE 20 MG/2 ML VIAL IV SCH (10:17)
[2020-03-18 16:09] VITALS: BP 135/62; TEMP 96.8
== END 2020-03-18 17:58 | disposition home or self-care (01) ==
LOC: ER 19:39 → ERHOLD 21:09 → 2ND 22:08
PROVIDERS: ADMIT Surgery; ATTEND Surgery
PROC: 0DTJ4ZZ Resection of Appendix, Percutaneous Endoscopic Approach (ICD-10-PCS; principal; 2020-03-16)
DX: K35.80 Unspecified acute appendicitis (principal); I10 Essential (primary) hypertension; Z11.59 Encounter for screening for other viral diseases
CPT/HCPCS: 96365; 96361; 93005; 87088; 85025 ×2; 87086; 80048 ×2; 36415 ×2; 82565; 82947; 80076 ×2; 88304; 81003; 83690 ×2; 74177; 71045; 96375; 99285; 44970; U0002; Q9967; J2704; J2250; J3010; J2543 ×5; J1100; J1170; G0378 ×4; J7799 ×3; J7120; J7030; J2405 ×3